=== PATIENT | female | born 1960 | race Caucasian/White ===

== ENCOUNTER 2023-03-09 09:01 | Outpatient (CLI) | payer OTHER, SELFPAY ==
--- NOTE | 2023-03-09 09:15 | CRLHL7_ITS ---
For Patients: As a result of the Century Cures Act, medical imaging exams and procedure reports are released immediately into your electronic medical record. You may view this report before your referring provider. If you have questions, please contact your health care provider. BILATERAL SCREENING MAMMOGRAM WITH COMPUTER-AIDED DETECTION AND TOMOSYNTHESIS TECHNIQUE: CC and MLO views were obtained. These mammographic images have been obtained using full-field digital technique. These mammographic images were interpreted with the benefit of computer-aided detection. Breast Tomosynthesis was used in this interpretation. COMPARISON FILM: 01/21/21, 10/09/13. FINDINGS: There are scattered areas of fibroglandular density IMPRESSION: There is no radiographic evidence for malignancy. ASSESSMENT: BI-RADS Category 1: Negative RECOMMENDATION: Routine screening mammogram in 1 year. A lay language report of this examination will be provided to the patient. Jhonathan Delgado M.D. Diagnostic Radiologist [email or web address] LILLY/Dictated by: Jhonathan Delgado MD @ 03/09/2023 12:02:00 PM (Electronically Signed)
== END 2023-03-09 09:02 | disposition home or self-care (01) ==
LOC: MAMMO 09:02
PROVIDERS: PCP Internal Medicine; Visit Provider Internal Medicine
DX: Z12.31 Encounter for screening mammogram for malignant neoplasm of breast (principal)
CPT/HCPCS: 77063; 77067

== ENCOUNTER 2023-12-26 07:40 | Outpatient (CLI) | payer OTHER, SELFPAY ==
--- OUTSIDE RECORDS SUMMARY | 2023-12-30 11:21 | XMS_ITS | Clinical Summary ---
Author Organization [employer] [facility] Address [place], [place] [address] Care Team Providers Care Aviation Maintenance Technician Name Role Phone Nita Garcia DO Primary Care Provid er Allergies Active Allergy Reactions Criticality Noted Date Comments Erythromycin Hives,Other - Descri be In Comment Field 10/25/2013 Stomach cramps, rash Medications Medication Sig Dispensed Refills Start Date End Date Status calcium carbonate 500 mg calcium (1,250 mg) chewable tablet Take 1,250 mg by mouth 3 times daily with meals. Calcium and magnesium Active multivitamin (MVI) tablet Take 1 tablet by mouth once daily. Active ERGOCALCIFEROL, VITAMIN D2, (VITAMIN D2 ORAL) Take by mouth. Act manuel FEXOFENADINE HCL (PEDRO ORAL) Take 1 Tab by mouth once daily. Active HYDROcodone-acetam inophen, 5-325 mg, (NORCO) per tablet Take 1-2 tablets by mouth every 4 hours if needed for Pain. Max acetaminophen dose: 4000mg in 24 hrs. 20 tablet 11/07/2013 Active Family History Medical History Relation Name Comments Cancer-breast No Family History Cancer-colon No Family History Cancer-ovarian No Family History Social History Tobacco Use Types Packs/Day Years Used Date Smoking Tobacco: Former Alcohol Use Standard Drinks/Week Comments Yes 1.7 (1 standard drink = 0.6 oz p ure alcohol) Sex and Gender Information Value Date Recorded Sex Assigned at Not on file Gender Identity Not on file Sexual Orientation Not on file Obstetrics History Last Filed Vital Signs Vital Sign Reading Time Taken Comments Blood Pressure 111/61 11/07/2013 2:07 PM CDT Pulse 66 11/07/2013 2:07 PM CDT Temperature 37.1 ??C (98.8 ??F) 11/07/2013 1:07 PM CD T Respiratory Rate 16 11/07/2013 2:07 PM CDT Oxygen Saturation 96% 11/07/2013 2:07 PM CDT Inhaled Oxygen Concentration - - Weight 76.7 kg (169 lb) 11/07/2013 11:41 AM CDT Height 172.7 cm (5' 7.99) 11/07/2013 11:41 AM C DT Body Mass Index 25.7 11/07/2013 11:41 AM CDT Plan of Treatment Health Maintenance Due Date Last Done Comments Tdap 1973 Depression screening for age 12+ 1974 HIV for age 15-65 1977 BMI (ht and wt on same day) for age 18+ 1980 Hepatitis C screening for age 18-79 1980 Tetanus booster 1982 Colonoscopy through age 75 10/10/2007 Lipids for age 45-75 10/10/2007 Mammogram for age 45-75 10/10/2007 Zoster (shingles) series for age 50+ (1 of 2) 2012 COVID-19 vaccine series (2022- season) 2023 Influenza for age 50-64 03/24/2024 Pap test for age 21-65 10/19/2024 , 10/19/2021, 2013, Additional history exists Pneumococcal series for age 6-64 Aged Out No longer eligible based on patient's age to complete this topic Procedures Procedure Name Priority Date/Time Associated Diagnosis Comments HPV THIN PREP Routine 10/19/2021 8:30 AM CDT from Last 3 Months or Most Recently Relevant to Health Maintenance Results * HPV HIGH RISK (10/19/2021 8:30 AM CDT) TYPE 16 Negative Negative 10/21/2021 10:54 AM CDT [facility] TYPE 18 Negative Negative 10/21/2021 10:54 AM CDT [facility] OTHER HIGH RISK TYPES Negative Negative 10/21/2021 10:54 AM CDT [facility] Other (Cervical/Vagina l) 10/19/2021 8:30 AM CDT 10/20/2021 7:54 AM CDT Narrative [facility] - 10/21/2021 10:54 AM CDT HPV types 16, 18, 31, 33, 35, 39, 45, 51, 52, 56, 58, 59, 66 and 68 DNA were undetectable or below the pre-set threshold. Methodology: Bam Malini 4800 HPV Test Ashley Bhatia MD MICROBIOLOGY [facility] [address] [place] [address], from Last 3 Months or Most Recently Relevant to Health Maintenance Advance Directives * Full Code (Latest Code Status on File) Date Activated Date Inactivated Comments 11/07/2013 9:19 AM 11/07/2013 4:48 PM Care Teams Aviation Maintenance Technician Relationship Specialty Start Date End Date Nita Garcia DO PCP - General Family Practice 10/16/13
== END 2023-12-26 07:41 | disposition home or self-care (01) ==
LOC: NFLDREF 12-30 11:18
PROVIDERS: PCP Internal Medicine; Referring Provider Internal Medicine; Visit Provider Internal Medicine
DX: E78.5 Hyperlipidemia, unspecified (principal)
CPT/HCPCS: 80061